=== PATIENT | male | born 1965 ===

== ENCOUNTER 2025-03-11 06:00 | Day surgery (SDC) | payer OTHER ==
[2025-03-03 09:53] LABS: PH,URINE 5.5 (5.0-8.0); URINE APPEARANCE Clear; URINE BILIRRUBIN Negative (NEGATIVE); URINE BLOOD Negative; URINE COLOR Yellow; URINE KETONE Negative (NEGATIVE); URINE LEUKOCYTE Negative; URINE NITRATE Negative; URINE PROTEIN Negative (NEGATIVE); URINE UROBILINOGEN 0.2 E.U./dl
[2025-03-03 09:55] LABS: URINE RBC 2.2 uL (0.0-20.8)
[2025-03-03 09:57] LABS: BASO % 0.5 % (0.1-1.2); EOS # 0.08 (0.04-0.54); EOS % 1.5 % (0.7-7.0); HEMATOCRIT 42.5 % (40.1-51.0); HEMOGLOBIN 14.8 g/dL (13.7-17.5); LYMPH % 27.4 % (19.3-53.1); MEAN CORPUSCULAR HEMOGLOBIN 30.5 pg (25.6-32.2); MONO # 0.57 (0.24-0.82); MONO % 10.4 % (4.7-12.5); NEUT # 3.29 (1.56-6.13); PLATELET COUNT 182 K/uL (163-369); RED BLOOD COUNT 4.86 M/uL (4.63-6.08); RED CELL DISTRIBUTION WIDTH 12.8 % (11.6-14.4); URINE BACTERIA 2.4 uL (0.0-1933); URINE EPITHELIAL CELLS 0.6 uL (0.0-38.8); URINE GLUCOSE >=1000 MG/DL (NEGATIVE); URINE WBC 1.4 uL (0.0-23.2)
[2025-03-03 09:59] VITALS: BP 139/86
[2025-03-03 10:50] LABS: INR 1.02; PARTIAL THROMBOPLASTIN TIME 24.1 SECONDS (22.0-34.0); PROTHROMBIN TIME 11.1 SECONDS (9.0-11.5)
[2025-03-03 11:15] LABS: ALBUMIN 3.9 gm/dL (3.4-5.0); BILIRUBIN TOTAL 0.69 mg/dL (0.3-1.2); CALCIUM 9.1 mg/dL (8.5-10.1); CREATININE SERUM 1.04 mg/dL (0.70-1.30); GFR 73.61; GLOBULINA 3.2 G/DL (2.4-3.5); POTASSIUM 4.6 mEq/L (3.5-5.1); TOTAL PROTEIN 7.1 gm/dL (6.4-8.2)
[~2025-03-11] VITALS: Ht 182.9 cm; Wt 106.6 kg
[~2025-03-11 06:00] MED LIST: CARVEDILOL25 MG; GLIMEPIRIDE4 MG; HYZAAR 100-251 EACH PO; JARDIANCE10 MG; LIPITOR40 M1 PO
[2025-03-11] MEDS ORDERED: CEFAZOLIN SODIUM 1,000 MG VIAL ONE (08:48)
[2025-03-11] MEDS ORDERED: BUPIVACAINE HCL 30 ML VIAL IJ ONE (09:45)
[2025-03-11] MEDS ORDERED: MORPHINE SULFATE 4 MG/ML VIAL IV ONE (10:10)
== END 2025-03-11 12:30 | disposition home or self-care (01) ==
LOC: CIR.AMB 06:00
PROVIDERS: ATTEND Orthopaedic Surgery Hand Surgery
DX: D21.11 Benign neoplasm of connective and other soft tissue of right upper limb, including shoulder (principal); M65.331 Trigger finger, right middle finger; R22.31 Localized swelling, mass and lump, right upper limb